=== PATIENT | male | born 1965 | race African-American/Black ===

== ENCOUNTER → 2017-11-26 | Outpatient (CLI) | payer OTHER ==
--- NOTE | 2017-11-26 12:25 | Diagnostic Imaging Report ---
TECHNIQUE: Magnetic resonance imaging of the RIGHT humerus was performed WITHOUT injected contrast. COMPARISON: None available. HISTORY: Pain, injury FINDINGS: Bone marrow signal normal. No fracture or infiltrating lesion. Glenohumeral humeral joint normally aligned. Os acromiale. Partial tear of the proximal myotendinous junction of the long head biceps. Edema extends into the biceps tendon sheath proximally. No rupture of the tendon proximally. The distal insertion on the radius is outside the field of view. No muscle atrophy. IMPRESSION: Partial tear long head biceps proximal myotendinous junction Signed by: Dr. Rolando Celeste M.D. on 11/26/2017 12:21 PM
== END ==
LOC: MRI 10:49
PROVIDERS: ATTEND Family Medicine
DX: S49.91XA Unspecified injury of right shoulder and upper arm, initial encounter (principal); S46.211A Strain of muscle, fascia and tendon of other parts of biceps, right arm, initial encounter